=== PATIENT | female | born 1960 | race Caucasian/White ===

== ENCOUNTER 2016-04-22 09:29 | Outpatient (CLI) | payer OTHER ==
--- NOTE | 2016-04-29 10:14 | DIAGNOSTIC IMAGING REPORT ---
PROCEDURE: MG BILATERAL SCREENING W/CAD INDICATION: Mother with a history of breast cancer. TECHNIQUE: Bilateral CC and MLO digital views. COMPARISON: Mammograms 02/25/2016, 02/22/2014 and 06/12/2012. FINDINGS: Computer-aided detection applied. Moderately dense. No change. IMPRESSION: 1. Negative mammogram RESULT CODE: 1- Negative. A. A negative report should not delay biopsy if a dominant or clinically suspicious mass is present. 10-15% of cancers are not identified by x-ray. B. A negative report may reinforce clinical impression. C. Adenosis and dense breasts may obscure an underlying neoplasm. D. False positive reports average 6-10%. E.. A yearly screening mammogram is recommended. A reminder letter will be scheduled.
[2016-06-30] MEDS ORDERED: LATANOPROST0.005 % OP (17:04)
[2016-06-30] MEDS ORDERED: METHOCARBAMOL500 MG PO (17:05)
[2016-06-30] MEDS ORDERED: IMITREX100 MG (17:05)
[2016-06-30] MEDS ORDERED: OXYCONTIN CR10 MG PO (17:05)
== END 2016-04-22 23:00 ==
LOC: MAM SRH 09:29
DX: Z12.31 Encounter for screening mammogram for malignant neoplasm of breast (principal); Z80.3 Family history of malignant neoplasm of breast

== ENCOUNTER 2016-06-08 07:13 | Outpatient (CLI) | payer OTHER ==
--- NOTE | 2016-06-08 11:20 | DIAGNOSTIC IMAGING REPORT ---
PROCEDURE: CT SOFT TISSUE NECK WITH CONT INDICATION: LT ATILLARY ENLARGED LYNMPH NODE;NITE SWEATS;WT LOSS TECHNIQUE: 75 ml of Isovue 300 IV contrast was administered. Axial thin-slice CT images were acquired through the neck with coronal and sagittal reformations. If needed, angled axial CT images avoiding dental hardware were acquired. COMPARISON: None. FINDINGS: No bulky adenopathy. There are a few minimally prominent bilateral submandibular lymph nodes measuring about 4 mm in short axis, within normal limits. No soft tissue mass. The glandular structures appear symmetric with normal attenuation and enhancement. Mucosal surfaces are normal without tonsillar enlargement. Parapharyngeal fat planes are normally maintained. The vasculature is patent and normal caliber bilaterally. The visible portions of the sinuses and mastoids demonstrate bilateral maxillary antrostomies and nasal turbinate reduction. The visible base of the brain is normal. Osseous structures are intact without periostitis or lytic lesion. No significant dental disease. The airway is patent. The lung apices are normally aerated. No suspicious mediastinal mass. IMPRESSION: 1. Normal soft tissues of the neck. 2. No significant adenopathy.
--- NOTE | 2016-06-08 11:29 | DIAGNOSTIC IMAGING REPORT ---
PROCEDURE: CT THORAX ABD PELVIS W/CONT INDICATION: LT ATILLARY ENLARGED LYNMPH NODE;NITE SWEATS;WT LOSS TECHNIQUE: 75 ml of Isovue 300 injected intravenously and axial images were obtained of the entire thorax, abdomen, and pelvis with sagittal and coronal reformations. COMPARISON: 10/02/2009 FINDINGS: THORAX: There is a benign-appearing lymph node without enlarged cortex in the left axilla underlying the marker. No axillary, supraclavicular, mediastinal, or hilar adenopathy. No anterior or posterior masses. Normal esophagus without hiatal hernia. Chambers of the heart are normal size. No pericardial effusions. The lungs are clear. The airway is patent and branches normally. No pleural effusions. No suspicious osseous lesions. Normal thyroid gland. ABDOMEN: Moderate intra and extrahepatic biliary dilatation status post cholecystectomy. 14 mm exophytic lower pole left renal cyst. The liver, adrenal glands, spleen, pancreas, right kidney, retroperitoneal vasculature and ureters appear normal. No unusual calcifications. The stomach and upper bowel loops appear normal. No retroperitoneal or mesenteric masses or adenopathy. No free fluid or free air. PELVIS: Appendix and uterus are surgically absent. Normal pelvic bowel loops, and colon. Normal partially filled urinary bladder, pelvic vessels, and lymph nodes. No suspicious adenopathy, soft tissue mass, or free pelvic fluid. Degenerative facet disease in the lower lumbar spine. No suspicious osseous lesions. IMPRESSION: 1. Normal left axillary lymph node in the region of palpable abnormality. 2. No suspicious adenopathy in the chest, abdomen, or pelvis. 3. Biliary dilatation status post cholecystectomy. Correlate with LFTs. 4. Status post appendectomy and hysterectomy. All CT scans at this facility use dose modulation, iterative reconstruction, and/or weight-based dosing when appropriate to reduce radiation dose to as low as reasonably achievable.
[2016-06-30] MEDS ORDERED: LATANOPROST0.005 % OP (17:04)
[2016-06-30] MEDS ORDERED: IMITREX100 MG (17:05)
[2016-06-30] MEDS ORDERED: OXYCONTIN CR10 MG PO (17:05)
[2016-06-30] MEDS ORDERED: METHOCARBAMOL500 MG PO (17:05)
== END 2016-06-08 23:00 ==
LOC: CT SRH 07:13
DX: R59.0 Localized enlarged lymph nodes (principal); R61 Generalized hyperhidrosis; R63.4 Abnormal weight loss